=== PATIENT | male | born 1995 | race African-American/Black ===

== ENCOUNTER 2017-01-23 23:29 | Emergency (ER) | payer MEDICAID ==
[~2017-01-23] VITALS: Ht 162.6 cm; Wt 56.7 kg
[2017-01-23 23:39] VITALS: BP 115/82
== END 2017-01-24 05:22 | disposition left against medical advice (07) ==
LOC: ER 23:32
DX: M25.511 Pain in right shoulder (principal); Z53.21 Procedure and treatment not carried out due to patient leaving prior to being seen by health care provider; Y08.89XA Assault by other specified means, initial encounter; Y93.89 Activity, other specified; Y99.8 Other external cause status; Y92.89 Other specified places as the place of occurrence of the external cause

== ENCOUNTER 2017-02-11 04:53 | Emergency (ER) | payer MEDICAID ==
[~2017-02-11] VITALS: Ht 167.6 cm; Wt 56.7 kg
[2017-02-11 05:28] VITALS: BP 142/77
[2017-02-11] MEDS ORDERED: KETOROLAC TROMETH 60MG/2ML VIAL IM ONE (05:30)
== END 2017-02-11 06:13 | disposition home or self-care (01) ==
LOC: ER 05:04
DX: S43.034A Inferior dislocation of right humerus, initial encounter (principal); F17.210 Nicotine dependence, cigarettes, uncomplicated; F12.10 Cannabis abuse, uncomplicated; X50.0XXA Overexertion from strenuous movement or load, initial encounter; Y93.89 Activity, other specified; Y99.8 Other external cause status; Y92.89 Other specified places as the place of occurrence of the external cause
CPT/HCPCS: 23650; 73020; 96372; 99284; J1885

== ENCOUNTER 2017-03-02 20:50 | Emergency (ER) | payer MEDICAID ==
[~2017-03-02] VITALS: Ht 167.6 cm; Wt 56.7 kg
[2017-03-02 20:57] VITALS: BP 121/82
[2017-03-02] MEDS ORDERED: MORPHINE SULF INJ 2 MG/ML SYRINGE 1ML IV ONE (22:45)
== END 2017-03-02 23:29 | disposition home or self-care (01) ==
LOC: ER 20:53
DX: S43.034A Inferior dislocation of right humerus, initial encounter (principal); F12.10 Cannabis abuse, uncomplicated; F17.210 Nicotine dependence, cigarettes, uncomplicated; Z87.442 Personal history of urinary calculi; X58.XXXA Exposure to other specified factors, initial encounter; Y93.89 Activity, other specified; Y99.8 Other external cause status; Y92.89 Other specified places as the place of occurrence of the external cause
CPT/HCPCS: 23650; 73020; 73030; 96372; 99284; J2270

== ENCOUNTER 2017-04-03 09:51 | Emergency (ER) | payer MEDICAID ==
[~2017-04-03] VITALS: Ht 167.6 cm; Wt 56.7 kg
[2017-04-03] MEDS ORDERED: ETOMIDATE (2MG/ML) 20ML VIAL IV ONE (12:30)
[2017-04-03 14:41] VITALS: BP 138/74
== END 2017-04-03 14:45 | disposition home or self-care (01) ==
LOC: ER 09:51
DX: M24.411 Recurrent dislocation, right shoulder (principal); Z87.442 Personal history of urinary calculi; X58.XXXA Exposure to other specified factors, initial encounter; Y93.89 Activity, other specified; Y92.89 Other specified places as the place of occurrence of the external cause; Y99.8 Other external cause status
CPT/HCPCS: 23650; 73030; 99152

== ENCOUNTER 2022-10-28 18:30 | Emergency (ER) | payer MEDICAID ==
[~2022-10-28] VITALS: Ht 167.6 cm; Wt 55.7 kg
[2022-10-28 18:57] VITALS: BP 142/56
[2022-10-28] MEDS ORDERED: IBUP800T27 PO (22:16)
== END 2022-10-28 22:30 | disposition home or self-care (01) ==
LOC: ER 18:30
DX: S05.12XA Contusion of eyeball and orbital tissues, left eye, initial encounter (principal); F17.210 Nicotine dependence, cigarettes, uncomplicated; Z79.1 Long term (current) use of non-steroidal anti-inflammatories (NSAID); W21.03XA Struck by baseball, initial encounter; Y93.64 Activity, baseball; Y92.89 Other specified places as the place of occurrence of the external cause; Y99.8 Other external cause status
CPT/HCPCS: 70486